=== PATIENT | female | born 1960 | race American Indian/Alaskan Native ===

== ENCOUNTER 2018-05-28 14:32 | Emergency (ER) | payer BC, OTHER ==
--- NOTE | 2018-05-28 15:21 | EDM.PDOC ---
ED HPI GENERAL MEDICAL PROBLEM - General Chief Complaint: Head Injury Stated Complaint: HEAD INJURY Time Seen by Provider: 05/28/18 15:01 Source of Information: Reports: Patient History Limitations: Reports: No Limitations - History of Present Illness INITIAL COMMENTS - FREE TEXT/NARRATIVE: 58-year-old female presents for evaluation treatment of head injury. Injury occurred 2 weeks ago. Patient reports hitting the superior parietal scalp on a garage door when she was straightening up. She denies any loss of consciousness with the injury. As stated this occurred about 2 weeks ago. Since then she's had headaches which are worse with movement. She has had nausea and vomiting. Dizziness that is worse with movement. She is experiencing a "queasy stomach ". she is also having trouble focusing, more irritable than normal, fatigue, photophobia and phonophobia. Reports that she has been vomiting frequently, not quite daily. States she has been taking [id number] Tylenol , Motrin and meclizine for the pain and dizziness. Patient is a type II diabetic. Reports her sugars have been running in the 144- 150 range. Patient is on a baby aspirin daily. Duration: Week(s): (2) Location: Reports: Head - Related Data Allergies Allergy/AdvReac Type Severity Reaction Status Date / Time ampicillin Allergy Rash Verified 05/28/18 15:03 Home Meds: Home Meds Aspirin [Halfprin] 81 mg PO DAILY 02/10/16 [History] Atenolol [Tenormin] 50 mg PO DAILY 02/10/16 [History] Fish Oil/[place]-3 Fatty Acids [Fish Oil 1,000 MG] 1 tab PO BID 02/10/16 [History] Losartan Potassium [Cozaar] 1 tab PO DAILY 02/10/16 [History] amLODIPine [Norvasc] 5 mg PO DAILY 02/10/16 [History] atorvaSTATin [Lipitor] 20 mg PO DAILY 02/10/16 [History] metFORMIN [Glucophage XR] 2,000 mg PO DAILY 02/10/16 [History] Cetirizine [ZyrTEC] 10 mg PO DAILY 05/28/18 [History] Cholecalciferol (Vitamin D3) [Vitamin D3] 2,000 unit PO DAILY 05/28/18 [History] Diclofenac Sodium 1 applic TOP QID 05/28/18 [History] Doxazosin [Cardura] 1 mg PO BEDTIME 05/28/18 [History] Estrogens, Conjugated [Premarin Vaginal Crm] 1 applic VAG ASDIRECTED 05/28/18 [ History] Fluticasone Propionate 1 spray NASBOTH DAILY 05/28/18 [History] Insulin Aspart [Novolog Flexpen] 20 unit SQ TIDMEALS 05/28/18 [History] Insulin Detemir [Levemir] 110 unit SQ DAILY 05/28/18 [History] Levothyroxine 150 mcg PO DAILY 05/28/18 [History] Multivits-Min/Iron/FA/Lutein [Centrum Silver Women Tablet] 1 tab PO DAILY [History] Ondansetron [Zofran ODT] 4 mg PO Q6H PRN #20 tab.dis 05/28/18 [Rx] SUMAtriptan [Imitrex] 25 mg PO ASDIRECTED PRN #20 tab 05/28/18 [Rx] SitaGLIPtin [Januvia] 100 mg PO DAILY 05/28/18 [History] Past Medical History HEENT History: Reports: Impaired Vision Cardiovascular History: Reports: Hypertension Other Cardiovascular History: Heart palpatations Gastrointestinal History: Reports: GERD Other Genitourinary History: pelvic mesh placed in 15yrs ago for incontinence [employer]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 Musculoskeletal History: Reports: Other (See Below) Other Musculoskeletal History: L torn rotator cuff Psychiatric History: Reports: Depression Endocrine/Metabolic History: Reports: Diabetes, Type II - Infectious Disease History Infectious Disease History: Reports: Chicken Pox, Influenza, Measles, Mumps, Pertussis (Whooping Cough) - Past Surgical History GI Surgical History: Reports: Appendectomy Female Surgical History: Reports: Tubal Ligation Dermatological Surgical History: Reports: None Social & Family History - Family History Cardiac: Reports: Heart Failure, [place], SOB on Exertion Other Cardiac Family History: mother and brother Respiratory: Reports: Other (See Below) Other Respiratory Family Hisory: mother pneumonia, brother from breathing problems : Reports: Renal Disease/Insufficiency, Other (See Below) Other Family History: Brother was on dialysis OBGYN: Reports: , Other (See Below) Other OBGYN Family History: hysterectomy- was hemmoraging Psychiatric: Reports: Depression, Suicide Attempt Other Psychiatric Family History: mom attempted suicide at least 3 times Endocrine/Metabolic: Reports: Diabetes, type II Other Endocrine/Metabolic Family History: mom and dad DM, and both brother - Tobacco Use Smoking Status *Q: Never Smoker - Caffeine Use Caffeine Use: Reports: None - Recreational Drug Use Recreational Drug Use: No - Living Situation & Occupation Living situation: Reports: ED ROS GENERAL - Review of Systems Review Of Systems: See Below Constitutional: Reports: Fatigue HEENT: Reports: Other (Reports photophobia and phonophobia) GI/Abdominal: Reports: Nausea, Vomiting Musculoskeletal: Reports: Neck Pain (Reports neck stiffness) Neurological: Reports: Dizziness, Headache. Denies: Numbness, Syncope, Tingling , Weakness Psychiatric: Reports: Other (Irritability) ED EXAM, HEAD INJURY - Physical Exam Exam: See Below Exam Limited By: No Limitations General Appearance: Alert, WD/WN, No Apparent Distress Head: Scalp Hematoma (Approximately one half of a golf ball sized area to the superior parietal scalp). No: Atraumatic, Normocephalic, Scalp Ecchymosis, Active Bleeding, Manzanares's Sign, Raccoon Eyes Nexus Criteria: No: Posterior, Midline Cervical Tenderness, Evidence of Intoxication, Altered Level of Consciousness, Focal Neurological Deficit, Painful Distraction Injuries Eyes: Bilateral Eye: EOMI, Normal Inspection, Nystagmus (Present with horizontal gaze), PERRL Ears: Normal External Exam, Normal Canal, Hearing Grossly Normal, Normal TMs. No: TM Blood Nose: Normal Inspection Throat/Mouth: Normal Inspection, Normal Lips, Normal Oropharynx, Normal Voice, No Airway Compromise Neck: Non-Tender, Full Range of Motion, Normal Alignment, Normal Inspection Respiratory: No Respiratory Distress, Lungs Clear, Normal Breath Sounds Cardiovascular: Normal Peripheral Pulses, Regular Rate, Rhythm, No Murmur Neurologic: Alert, Normal Mood/Affect, Other (Normal heel to bey testing, normal finger to nose testing; tiller man strength, dorsiflexion and plantar flexion 5 out of 5 bilaterally) Skin: Normal Color, Warm/Dry - Aramis Coma Score Best Eye Response ([place]): (4) Open Spontaneously Best Verbal Response ([place]): (5) Oriented Best Motor Response ([place]): (6) Obeys Commands Course - Vital Signs Last Recorded V/S: Last Vital Signs Temp 97.5 F 05/28/18 14:56 Pulse 62 05/28/18 17:05 Resp 16 05/28/18 17:05 BP 119/70 05/28/18 17:05 Pulse Ox 97 05/28/18 17:05 - Orders/Labs/Meds Orders: Active Orders 24 hr Category Date Time Status Head wo Cont [CT] Stat Exams 05/28/18 15:18 Taken - Radiology Interpretation Free Text/Narrative:: CT of the head without contrast impression per [facility]: no acute intracranial process. No sign of 2 week old injury - Re-Assessments/Exams Free Text/Narrative Re-Assessment/Exam: 05/28/18 16:31 I reviewed the imaging with the patient. She does appear to have a postconcussive headache. Recommend symptomatic care. Follow-up in the clinic in 2 weeks for recheck of her symptoms. Discharge instructions as documented. Departure - Departure Time of Disposition: 16:40 Disposition: Home, Self-Care 01 Condition: Fair Clinical Impression: Post concussion syndrome, Headache - Discharge Information *PRESCRIPTION DRUG MONITORING PROGRAM REVIEWED*: No *COPY OF PRESCRIPTION DRUG MONITORING REPORT IN PATIENT MAREN: No Prescriptions: Ondansetron [Zofran ODT] 4 mg PO Q6H PRN #20 tab.dis PRN Reason: Nausea SUMAtriptan [Imitrex] 25 mg PO ASDIRECTED PRN #20 tab PRN Reason: Headache Instructions: General Headache Without Cause, Post-Concussion Syndrome, Easy-to -Read Referrals: PCP,None [Primary Care Provider] - Forms: ED Department Discharge Additional Instructions: make sure you are drinking plenty of fluids. Rest. [id number] Tylenol or motrin as needed for pain. For headaches not relieved by Tylenol or Motrin, may take Imitrex. Take 1 tablet at onset of headache, repeat 2 hours later if headache persists. Zofran 1 tab sublingual every 6-8 hours as needed for nausea. May continue take the meclizine as prescribed for dizziness. Follow-up with your primary care provider within 2 weeks for recheck of your symptoms. Please return to the ER if your symptoms change or worsen. - My Orders Last 24 Hours: My Active Orders 05/28/18 15:18 Head wo Cont [CT] Stat - Assessment/Plan Last 24 Hours: My Active Orders 05/28/18 15:18 Head wo Cont [CT] Stat
[2018-05-28 17:11] VITALS: BP 119/70
--- NOTE | 2018-05-31 08:47 | CT ---
Head CT Technique: Multiple axial sections through the brain were obtained. Intravenous contrast was not utilized. Comparison: Prior MRI brain of 02/11/[address] exam of 02/10/16. Findings: Ventricles along with basal cisterns and sulci over the convexities are within normal limits for the patient's age. No abnormal parenchymal densities are seen. No evidence of intracranial hemorrhage. No midline shift or mass effect is seen. Bone window settings were reviewed which show no acute calvarial abnormality. Visualized sinuses are clear. Impression: 1. Nothing acute is seen on noncontrast head CT study. Diagnostic code #1 Agree with preliminary report issued by [facility] ([facility] preliminary report dictated on 05/28/18, 5:19 PM Central Time)
== END 2018-05-28 17:05 | disposition home or self-care (01) ==
LOC: JD.ED 14:32
DX: G44.309 Post-traumatic headache, unspecified, not intractable (principal); F07.81 Postconcussional syndrome; I10 Essential (primary) hypertension; E11.9 Type 2 diabetes mellitus without complications; Z88.1 Allergy status to other antibiotic agents; Z79.82 Long term (current) use of aspirin; Z79.4 Long term (current) use of insulin; Z79.899 Other long term (current) drug therapy
CPT/HCPCS: 70450; 70450-26; 99284; 99284-25

== ENCOUNTER 2018-10-01 13:36 | Emergency (ER) | payer BC, OTHER ==
[2018-10-01] MEDS ORDERED: Sodium Chloride 0.9% 10 ML Syringe FLUSH PRN (14:00)
--- NOTE | 2018-10-01 14:04 | EDM.PDOC ---
ED HPI GENERAL MEDICAL PROBLEM - General Chief Complaint: Chest Pain Stated Complaint: R SHOULDER AND ARM PAIN Time Seen by Provider: 10/01/18 13:58 Source of Information: Reports: Patient History Limitations: Reports: No Limitations - History of Present Illness INITIAL COMMENTS - FREE TEXT/NARRATIVE: 58-year-old female presents to the ED with pain in her right shoulder over the last couple of days with movement of the shoulder in certain directions. No pain in her neck or referred pain from the neck to the shoulder. Certain movements such as putting on her coat cause increased pain primarily in the anterior aspect of her chest but also posteriorly. No previous fractures or injuries to the shoulder. She has left rotator cuff disease on the left shoulder. She does have a productive sounding cough at times. Has not been coughing real hard. Pain in her right upper anterior chest started about an hour ago. This is what precipitated the ED visit. No fever no chills. Is a nonsmoker. History of coronary disease. Triage nurse did an ECG and it is sinus rhythm at 60/m. There is a near Q-wave in 3 and Q-wave in lead aVF suggesting possibility of an old inferior wall myocardial infarction otherwise ECG is essentially normal. No evidence of acute ischemia. Onset: Gradual (Right shoulder pain for the last 2-3 days.), Other (Right anterior chest pain for one hour) Onset Date: 10/01/18 Onset Time: 12:30 (Right anterior chest pain upper) Duration: Minutes: Location: Reports: Chest (Right upper anterior chest pain radiates through to her back), Upper Extremity, Right (Right shoulder pain with certain movements.) Quality: Reports: Ache, Other Severity: Moderate (Occasionally sharp and stabbing) Improves with: Reports: Rest Worsens with: Reports: Movement (Movement of the right arm and shoulder causes increased pain) Context: Reports: Other (Gradual occurrence over the last 3 days). Denies: Activity, Exercise, Lifting, Sick Contact, Trauma Associated Symptoms: Reports: Other (She does have a mild cough and a bit of a sore throat.) Treatments ADMISSION SPECIALIST: Reports: Other (see below) (None.) Right Chest Pain Score (Numeric/FACES): 8 - Related Data Allergies Allergy/AdvReac Type Severity Reaction Status Date / Time ampicillin Allergy Rash Verified 10/01/18 13:48 Home Meds: Home Meds Aspirin [Halfprin] 81 mg PO DAILY 02/10/16 [History] Atenolol [Tenormin] 50 mg PO DAILY 02/10/16 [History] Fish Oil/[place]-3 Fatty Acids [Fish Oil 1,000 MG] 1 tab PO BID 02/10/16 [History] Losartan Potassium [Cozaar] 1 tab PO DAILY 02/10/16 [History] amLODIPine [Norvasc] 5 mg PO DAILY 02/10/16 [History] atorvaSTATin [Lipitor] 20 mg PO DAILY 02/10/16 [History] metFORMIN [Glucophage XR] 2,000 mg PO DAILY 02/10/16 [History] Cetirizine [ZyrTEC] 10 mg PO BEDTIME 05/28/18 [History] Cholecalciferol (Vitamin D3) [Vitamin D3] 2,000 unit PO DAILY 05/28/18 [History] Doxazosin [Cardura] 1 mg PO DAILY 05/28/18 [History] Estrogens, Conjugated [Premarin Vaginal Crm] 1 applic VAG ASDIRECTED 05/28/18 [ History] Fluticasone Propionate 1 spray NASBOTH DAILY 05/28/18 [History] Insulin Aspart [Novolog Flexpen] 20 unit SQ TIDMEALS 05/28/18 [History] Insulin Detemir [Levemir] 110 unit SQ DAILY 05/28/18 [History] Levothyroxine 150 mcg PO DAILY 05/28/18 [History] Multivits-Min/Iron/FA/Lutein [Centrum Silver Women Tablet] 1 tab PO DAILY [History] Ondansetron [Zofran ODT] 4 mg PO Q6H PRN #20 tab.dis 05/28/18 [Rx] SitaGLIPtin [Januvia] 100 mg PO DAILY 05/28/18 [History] Diclofenac Sodium [Voltaren] 75 mg PO BIDMEALS #14 tab.cr 10/01/18 [Rx] Past Medical History HEENT History: Reports: Impaired Vision Cardiovascular History: Reports: Hypertension Other Cardiovascular History: Heart palpatations Gastrointestinal History: Reports: GERD Other Genitourinary History: pelvic mesh placed in 15yrs ago for incontinence 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 CONS[employer]ANT [employer] History: tubes tided Musculoskeletal History: Reports: Other (See Below) Other Musculoskeletal History: L torn rotator cuff Psychiatric History: Reports: Depression Endocrine/Metabolic History: Reports: Diabetes, Type II (Controlled with metformin and insulin.) - Infectious Disease History Infectious Disease History: Reports: Chicken Pox, Influenza, Measles, Mumps, Pertussis (Whooping Cough) - Past Surgical History GI Surgical History: Reports: Appendectomy Female Surgical History: Reports: Tubal Ligation Dermatological Surgical History: Reports: None Social & Family History - Family History Cardiac: Reports: Heart Failure, [place], SOB on Exertion Other Cardiac Family History: mother and brother Respiratory: Reports: Other (See Below) Other Respiratory Family Hisory: mother pneumonia, brother from breathing problems : Reports: Renal Disease/Insufficiency, Other (See Below) Other Family History: Brother was on dialysis OBGYN: Reports: , Other (See Below) Other OBGYN Family History: hysterectomy- was hemmoraging Psychiatric: Reports: Depression, Suicide Attempt Other Psychiatric Family History: mom attempted suicide at least 3 times Endocrine/Metabolic: Reports: Diabetes, type II Other Endocrine/Metabolic Family History: mom and dad DM, and both brother - Caffeine Use Caffeine Use: Reports: None - Living Situation & Occupation Living situation: Reports: ED ROS GENERAL - Review of Systems Review Of Systems: See Below Constitutional: Denies: Fever, Chills, Malaise, Weakness, Fatigue, Weight Loss HEENT: Reports: Glasses Respiratory: Reports: Cough, Sputum. Denies: Shortness of Breath, Wheezing, Hemoptysis (Occasional but has looked at the color.) Cardiovascular: Reports: Chest Pain, Blood Pressure Problem (An upper anterior chest pain started about an hour ago.). Denies: Claudication, Dyspnea on Exertion, Edema, Lightheadedness, Orthopnea ( Hypertension controlled with medication) Endocrine: Reports: Fatigue, High Glucose (Is a type II diabetic.) GI/Abdominal: Reports: No Symptoms : Reports: Frequency Musculoskeletal: Reports: Shoulder Pain Skin: Reports: No Symptoms (Right shoulder pain see history of present illness) Neurological: Reports: No Symptoms Psychiatric: Reports: No Symptoms Hematologic/Lymphatic: Reports: No Symptoms ED EXAM, GENERAL - Physical Exam Exam: See Below Exam Limited By: No Limitations General Appearance: Alert, WD/WN, No Apparent Distress, Other (Vital signs are stable.) Eye Exam: Bilateral Eye: Normal Inspection Throat/Mouth: Normal Inspection, Normal Lips, Normal Oropharynx Head: Atraumatic, Normocephalic Neck: Normal Inspection, Supple, Non-Tender, Full Range of Motion. No: Lymphadenopathy (L), Lymphadenopathy (R), Thyromegaly Respiratory/Chest: No Respiratory Distress, Lungs Clear, Normal Breath Sounds, No Accessory Muscle Use, Chest Non-Tender, Other (A she has marked chest wall tenderness midclavicular line on the right side ribs 234 and 5 were exquisitely tender to touch. On the left side she is mildly tender ribs 3 and 4 in the midclavicular line. She is also very tender to palpation over the coracoid process of the scapula.) Cardiovascular: Normal Peripheral Pulses, Regular Rate, Rhythm, No Edema, No Gallop, No Murmur Peripheral Pulses: 2+: Posterior Tibial (L), Posterior Tibial (R), Dorsalis Pedis (L), Dorsalis Pedis (R) GI/Abdominal: Normal Bowel Sounds, Soft, Non-Tender, No Organomegaly, No Abnormal Bruit, No Mass, Pelvis Stable, Other (Mildly obese.) Back Exam: Normal Inspection, Full Range of Motion, Muscle Spasm (She has not well localized muscle spasm over the right T8 and 9 rib heads. Nothing on the left side), Other. No: Vertebral Tenderness Extremities: Normal Inspection, Normal Range of Motion, Non-Tender, No Pedal Edema, Other ( Some tenderness at the insertion site of the deltoid tendon.) Neurological: Alert, Oriented, CN II-XII Intact, Normal Cognition, No Motor/ Sensory Deficits, Confused Psychiatric: Normal Mood Skin Exam: Warm, Dry, Intact, Normal Color, No Rash EKG INTERPRETATION EKG Date: 10/01/18 Time: 13:46 Rhythm: NSR Rate (Beats/Min): 60 [place]: LAD-Left [place] Deviation (Mild left axis deviation -15) P-Wave: Present QRS: Other (Near Q-wave in lead 3 and Q-wave in lead aVF. Consider old inferior wall myocardial infarction) ST-T: Normal QT: Normal EKG Interpretation Comments: Abnormal ECG Course - Vital Signs Last Recorded V/S: Last Vital Signs Temp 36.6 C 10/01/18 13:46 Pulse 60 10/01/18 13:46 Resp 18 10/01/18 13:46 BP 144/70 H 10/01/18 13:46 Pulse Ox 95 10/01/18 13:46 - Orders/Labs/Meds Orders: Active Orders 24 hr Category Date Time Status EKG Documentation Completion [RC] STAT Care 10/01/18 14:00 Active Peripheral IV Care [RC] . DIRECTED Care 10/01/18 14:00 Active Chest 1V Frontal [CR] Stat Exams 10/01/18 13:59 Taken Shoulder Comp Rt [CR] Stat Exams 10/01/18 14:00 Taken Ketorolac [Toradol] Med 10/01/18 14:15 Active 30 mg IVPUSH ONETIME Sodium Chloride 0.9% [Saline Flush] Med 10/01/18 14:00 Active 10 ml FLUSH ASDIRECTED PRN Peripheral IV Insertion Adult [OM.PC] Stat Oth 10/01/18 14:00 Ordered Medication Orders Ketorolac Tromethamine (Toradol) 30 mg IVPUSH ONETIME GEOFFREY Last Admin: 10/01/18 14:06 Dose: 30 mg Sodium Chloride (Saline Flush) 10 ml FLUSH ASDIRECTED PRN PRN Reason: Keep Vein Open Last Admin: 10/01/18 14:08 Dose: 10 ml Labs: Laboratory Tests 10/01/18 10/01/18 10/01/18 Range/Units 14:00 14:00 14:00 WBC 6.69 (3.98-10.04) K/mm3 RBC 4.62 (3.98-5.22) M/mm3 Hgb 13.7 (11.2-15.7) gm/L Hct 41.3 (34.1-44.9) % MCV 89.4 (79.4-94.8) fl MCH 29.7 (25.6-32.2) pg MCHC 33.2 (32.2-35.5) g/dl RDW Std Deviation 42.3 (36.4-46.3) fL Plt Count 193 (182-369) K/mm3 MPV 11.7 (9.4-12.3) fl Neutrophils % (Manual) 62 H (40-60) % Band Neutrophils % 0 (0-10) % Lymphocytes % (Manual) 30 (20-40) % Atypical Lymphs % 0 % Monocytes % (Manual) 6 (2-10) % Eosinophils % (Manual) 2 (0.7-5.8) % Basophils % (Manual) 0 L (0.1-1.2) Platelet Estimate Adequate RBC Morph Comment Normal D-Dimer, Quantitative 0.48 (0.19-0.50) mg/L Sodium 142 (136-145) mEq/L Potassium 4.1 (3.5-5.1) mEq/L Chloride 107 (98-107) mEq/L Carbon Dioxide 24 (21-32) mEq/L Anion Gap 15.1 H (5-15) BUN 17 (7-18) mg/dL Creatinine 1.2 H (0.55-1.02) mg/dL Est Cr Clr Drug Dosing 42.79 mL/min Estimated GFR (MDRD) 46 (>60) mL/min BUN/Creatinine Ratio 14.2 (14-18) Glucose 208 H (74-106) mg/dL Calcium 10.3 H (8.5-10.1) mg/dL Total Bilirubin 0.5 (0.2-1.0) mg/dL AST 41 H (15-37) U/L ALT 59 (14-59) U/L Alkaline Phosphatase 116 (46-116) U/L Troponin I < 0.017 (0.00-0.056) ng/mL C-Reactive Protein 0.9 (<1.0) mg/dL Total Protein 7.4 (6.4-8.2) g/dl Albumin 3.5 (3.4-5.0) g/dl Globulin 3.9 gm/dL Albumin/Globulin Ratio 0.9 L (1-2) Meds: Medications Generic Name Dose Route Start Last Admin Trade Name Freq PRN Reason Stop Dose Admin Ketorolac Tromethamine 30 mg 10/01/18 14:15 10/01/18 14:06 Toradol IVPUSH 30 mg ONETIME GEOFFREY Administration Sodium Chloride 10 ml 10/01/18 14:00 10/01/18 14:08 Saline Flush FLUSH 10 ml ASDIRECTED PRN Administration Keep Vein Open - Radiology Interpretation Free Text/Narrative:: 58-year-old female presents to the ED with right shoulder pain and right anterior upper chest pain. Chest pain started about an hour ago but the shoulder pain is been present for 2-3 days. It's worsened by certain movements such as getting her coat on etc. Examination confirms mild deltoid insertion tendinitis and tendinitis at the coracoid process insertion. Also ribs are very tender in the midclavicular line on the right side ribs 234 and 5. The lungs are clear to stage percussion. She states does have a mild cough. O2 sats only 95% on room air. She is a nonsmoker. Plan 1 view chest x-ray 3 view of the shoulder to be done. Routine labs including CBC , CMP and CRP and d-dimer to be done. Saline lock is started by triage nurse. I will give her Toradol 30 mg IV. - Re-Assessments/Exams Free Text/Narrative Re-Assessment/Exam: 10/01/18 14:37 chest x-ray one view is within normal limits. Cardiac silhouette is normal visualized portion of the lungs are clear. Visualized ribs show no abnormalities. Two-view x-ray of the right shoulder also reveals only mild arthritic changes at the acromion process. Bony structures are otherwise normal. 10/01/18 14:39 Labs reveal a normal white count at 6.69 with 62% neutrophils and no band cells hemoglobin is 13.7 with hematocrit of 41.3. Platelet count is normal 193,000. D-dimer is normal at 0.48. Sodium 142 with a potassium of 4.1. Toward 107 with a bicarbonate 24. And a gap is 15.1. BUNs 17 with a creatinine of 1.2. Glucose is elevated at 28 but the patient is a diabetic. Calcium slightly elevated at 10.3. Liver function is normal cardiac markers are also normal with troponin I of less than 0.017. C- reactive protein is 0.9. 10/01/18 14:[address] the patient on Voltaren 75 mg twice daily for 7 days to reduce pain and inflammation. Her kidney function is normal. Advise seeking chiropractic manipulation of the rib head that's out at thoracic 89 in her right upper back. Departure - Departure Time of Disposition: 14:45 Disposition: Home, Self-Care 01 Condition: Fair Clinical Impression: Tendonitis of shoulder, right, Anterior chest wall pain, Non-cardiac chest pain - Discharge Information *PRESCRIPTION DRUG MONITORING PROGRAM REVIEWED*: No *COPY OF PRESCRIPTION DRUG MONITORING REPORT IN PATIENT MAREN: No Prescriptions: Diclofenac Sodium [Voltaren] 75 mg PO BIDMEALS #14 tab.cr Referrals: Bosko,Aretha, [employer]ER [Primary Care Provider] - Forms: ED Department Discharge Additional Instructions: Evaluation the emergency room today in regards to pain in her right shoulder for the last 2-3 days but right upper anterior chest pain developed over the last few hours. Examination reveals tendinitis in the right shoulder some of the deltoid muscle insertion and the outer shoulder but pain primarily over the coracoid process which is where tendon is attached her shoulder blade and you' re little right upper anterior chest. Also ribs 2345 were very tender to touch on the right side and mildly on the left side. Chest x-ray is normal x-ray of the right shoulder shows minimal degenerative arthritic changes of the undersurface of the acromion process but no other active arthritis in the true shoulder joint. Test done revealed no evidence of blood clot in the lawn or heart related illness. The ribs were also well visualized on the chest x-ray in the do not reveal any abnormalities. Diagnosis is tendinitis of tendons that help move her shoulder and attached to your chest wall. Treatment is Voltaren 75 mg twice daily with breakfast and supper for the next 7 days to reduce pain and inflammation. Use Tylenol as well 650 mg every 6 hours if needed for pain relief. Regards the rib head that's out in your right upper back suggest follow- up with chiropractor to have this adjusted. Follow-up with personal care physician if problems persist. - My Orders Last 24 Hours: My Active Orders 10/01/18 13:59 Chest 1V Frontal [CR] Stat 10/01/18 14:00 EKG Documentation Completion [RC] STAT Peripheral IV Care [RC] . DIRECTED Shoulder Comp Rt [CR] Stat Sodium Chloride 0.9% [Saline Flush] 10 ml FLUSH ASDIRECTED PRN Peripheral IV Insertion Adult [OM.PC] Stat 10/01/18 14:15 Ketorolac [Toradol] 30 mg IVPUSH ONETIME - Assessment/Plan Last 24 Hours: My Active Orders 10/01/18 13:59 Chest 1V Frontal [CR] Stat 10/01/18 14:00 EKG Documentation Completion [RC] STAT Peripheral IV Care [RC] . DIRECTED Shoulder Comp Rt [CR] Stat Sodium Chloride 0.9% [Saline Flush] 10 ml FLUSH ASDIRECTED PRN Peripheral IV Insertion Adult [OM.PC] Stat 10/01/18 14:15 Ketorolac [Toradol] 30 mg IVPUSH ONETIME
[2018-10-01] MEDS ORDERED: Ketorolac 30 MG/ML SDV IVPUSH SCH (14:15)
[2018-10-01 14:56] VITALS: BP 122/71
--- NOTE | 2018-10-01 16:16 | CR ---
Chest: Frontal view of the chest was obtained. Comparison: Prior chest x-ray of 02/26/10. Heart size is normal. Slight tortuosity of the thoracic aorta is seen. Lungs show no acute parenchymal change. Bony structures are grossly intact. Impression: 1. Nothing acute is appreciated on frontal chest x-ray. Diagnostic code #1
--- NOTE | 2018-10-01 16:18 | CR ---
Right shoulder: Three views of the right shoulder were obtained. Comparison: No prior right shoulder study. Small inferior spurring is noted off the acromion process at the acromioclavicular joint. Glenohumeral joint appears within normal limits. No soft tissue calcifications are seen. No acute fracture or other abnormality is seen. Impression: 1. Incidental finding as noted above. Right shoulder study is otherwise unremarkable. Diagnostic code #2
== END 2018-10-01 14:52 | disposition home or self-care (01) ==
LOC: JD.ED 13:36
DX: M75.91 Shoulder lesion, unspecified, right shoulder (principal); R07.89 Other chest pain; I10 Essential (primary) hypertension; K21.9 Gastro-esophageal reflux disease without esophagitis; F32.9 Major depressive disorder, single episode, unspecified; E11.9 Type 2 diabetes mellitus without complications; Z88.1 Allergy status to other antibiotic agents; Z79.899 Other long term (current) drug therapy; Z79.4 Long term (current) use of insulin
CPT/HCPCS: 36415; 71045; 73030; 80053; 84484; 85007; 85027; 85379; 86140; 93005; 96374; 99284; J1885; 93010; 99285

== ENCOUNTER 2019-02-18 10:15 | Emergency (ER) | payer BC, OTHER ==
[2019-02-18 10:25] VITALS: BP 140/72
--- NOTE | 2019-02-18 10:46 | EDM.PDOC ---
ED HPI GENERAL MEDICAL PROBLEM - General Chief Complaint: Cardiovascular Problem Stated Complaint: [facility] Time Seen by Provider: 02/18/19 10:20 Source of Information: Reports: Patient, EMS Notes Reviewed, RN Notes Reviewed, Other (S clinic notes) History Limitations: Reports: No Limitations - History of Present Illness INITIAL COMMENTS - FREE TEXT/NARRATIVE: Patient is a 59-year-old female who presents to the ED today via [facility] for the evaluation of chest pain. The patient states that she woke up this morning and felt as if her heart was racing, and that she couldn't relax. She states she got up to try to relax but could not so she went to the bathroom and got ready for work. The patient states she went to work and still wasn't feeling all that great, so she went to the clinic and she thought maybe her blood pressure could be a little bit high as well. The patient notes that her blood sugar at that time was also 257. Her blood pressure at time of triage is 140/72. The patient states that she developed left sided arm pain, that radiated into her left chest as they were checking her blood pressure at the clinic. The patient notes that she has had pain like this similar in the past and was told she had a rotator cuff tear on her left shoulder. She denies any trauma or reinjury to her left shoulder. The patient notes the pain to be sort of crampy in nature. She was given 2 nitroglycerin tablets and 4 baby aspirins at the clinic, this helped to resolve her pain from a 7/10 to a 2/10. The patient states that she has recently been started on Trulicity for her diabetes as it is been somewhat uncontrolled. She states she has taken 4 doses of this, these are weekly injections. She is develop some diarrhea from this medication, but does not have any other GI concerns at this time. She denies any shortness of breath, blurred vision, fevers or chills. She notes the left- sided chest pain and left-sided arm pain, and a headache that has since resolved. The patient's primary care provider does work at [facility] [employer] in [place]. Treatments [employer]: Reports: EKG Left Chest Pain Score (Numeric/FACES): 2 - Related Data Allergies Allergy/AdvReac Type Severity Reaction Status Date / Time ampicillin Allergy Rash Verified 02/18/19 10:21 Home Meds: Home Meds Aspirin [Halfprin] 81 mg PO DAILY 02/10/16 [History] Atenolol [Tenormin] 50 mg PO DAILY 02/10/16 [History] Fish Oil/Schulter-3 Fatty Acids [Fish Oil 1,000 MG] 1 tab PO BID 02/10/16 [History] Losartan Potassium [Cozaar] 1 tab PO DAILY 02/10/16 [History] amLODIPine [Norvasc] 5 mg PO DAILY 02/10/16 [History] atorvaSTATin [Lipitor] 20 mg PO DAILY 02/10/16 [History] metFORMIN [Glucophage XR] 2,000 mg PO DAILY 02/10/16 [History] Cholecalciferol (Vitamin D3) [Vitamin D3] 2,000 unit PO DAILY 05/28/18 [History] Doxazosin [Cardura] 1 mg PO DAILY 05/28/18 [History] Insulin Aspart [Novolog Flexpen] 20 unit SQ TIDMEALS 05/28/18 [History] Insulin Detemir [Levemir] 110 unit SQ DAILY 05/28/18 [History] Levothyroxine 150 mcg PO DAILY 05/28/18 [History] Multivits-Min/Iron/FA/Lutein [Centrum Silver Women Tablet] 1 tab PO DAILY [History] SitaGLIPtin [Januvia] 100 mg PO DAILY 05/28/18 [History] Diclofenac Sodium [Voltaren] 75 mg PO BIDMEALS #14 tab.cr 10/01/18 [Rx] Acetaminophen 1,000 mg PO Q6HR 02/18/19 [History] Cetirizine [ZyrTEC] 10 mg PO DAILY 02/18/19 [History] Dulaglutide [Trulicity] 0.75 mg INJECT WEEKLY 02/18/19 [History] Estrogens, Conjugated [Premarin Vaginal Crm] 1 applic TOP BID 02/18/19 [History] Fluticasone Propionate, Micro [Fluticasone Propionate Micro] 1 sprays JUAN DAILY PRN 02/18/19 [History] Ibuprofen 600 mg PO Q6HR 02/18/19 [History] guaiFENesin [Guaifenesin] 200 mg PO Q4HR 02/18/19 [History] Past Medical History HEENT History: Reports: Impaired Vision Other HEENT History: L ear deaf Cardiovascular History: Reports: Hypertension Other Cardiovascular History: Heart palpatations. 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: Reports: Other SECURITY ROVER History: tubes tided Musculoskeletal History: Reports: Other (See Below) Other Musculoskeletal History: L torn rotator cuff Psychiatric History: Reports: Depression Endocrine/Metabolic History: Reports: Diabetes, Type II - Infectious Disease History Infectious Disease History: Reports: Chicken Pox, Influenza, Measles, Mumps, Pertussis (Whooping Cough) - Past Surgical History HEENT Surgical History: Reports: LASIK GI Surgical History: Reports: Appendectomy Female Surgical History: Reports: Hysterectomy, Tubal Ligation Dermatological Surgical History: Reports: None Social & Family History - Family History Cardiac: Reports: Heart Failure, [place], SOB on Exertion Other Cardiac Family History: mother and brother Respiratory: Reports: Other (See Below) Other Respiratory Family Hisory: mother pneumonia, brother from breathing problems : Reports: Renal Disease/Insufficiency, Other (See Below) Other Family History: Brother was on dialysis OBGYN: Reports: , Other (See Below) Other OBGYN Family History: hysterectomy- was hemmoraging Psychiatric: Reports: Depression, Suicide Attempt Other Psychiatric Family History: mom attempted suicide at least 3 times Endocrine/Metabolic: Reports: Diabetes, type II Other Endocrine/Metabolic Family History: mom and dad DM, and both brother - Tobacco Use Smoking Status *Q: Former Smoker Used Tobacco, but Quit: Yes Month/Year Tobacco Last Used: 10/1983 - Caffeine Use Caffeine Use: Reports: None - Recreational Drug Use Recreational Drug Use: No - Living Situation & Occupation Living situation: Reports: ED ROS GENERAL - Review of Systems Review Of Systems: See Below Constitutional: Denies: Fever, Chills, Malaise HEENT: Reports: No Symptoms Respiratory: Denies: Shortness of Breath, Wheezing, Cough Cardiovascular: Reports: Chest Pain (left sided). Denies: Dyspnea on Exertion, Edema, Lightheadedness, Orthopnea, Syncope Endocrine: Reports: No Symptoms GI/Abdominal: Reports: Diarrhea. Denies: Constipation, Nausea, Vomiting : Reports: No Symptoms Musculoskeletal: Reports: Shoulder Pain (Left shoulder), Arm Pain (Left upper arm) Skin: Reports: No Symptoms Neurological: Reports: No Symptoms Psychiatric: Reports: No Symptoms Hematologic/Lymphatic: Reports: No Symptoms Immunologic: Reports: No Symptoms ED EXAM, GENERAL - Physical Exam Exam: See Below Exam Limited By: No Limitations General Appearance: Alert, WD/WN, No Apparent Distress Eye Exam: Bilateral Eye: Normal Inspection Ears: Normal External Exam Nose: Normal Inspection Throat/Mouth: Normal Inspection, Normal Lips, Normal Teeth, Normal Gums, Normal Oropharynx, Normal Voice, No Airway Compromise Head: Atraumatic, Normocephalic Neck: Normal Inspection, Supple, Non-Tender, Full Range of Motion Respiratory/Chest: No Respiratory Distress, Lungs Clear, Normal Breath Sounds, No Accessory Muscle Use, Other (Patient's chest is tender to palpation over the 3-4th rib mid clavicular line) Cardiovascular: Normal Peripheral Pulses, Regular Rate, Rhythm, No Murmur Peripheral Pulses: 3+: Radial (L), Radial (R) GI/Abdominal: Normal Bowel Sounds, Soft, Non-Tender, No Distention, No Mass Extremities: Normal Inspection, Normal Range of Motion, Non-Tender, Normal Capillary Refill Neurological: Alert, Oriented, Normal Cognition, No Motor/Sensory Deficits Psychiatric: Normal Affect, Normal Mood Skin Exam: Warm, Dry, Intact, Normal Color, No Rash EKG INTERPRETATION EKG Date: 02/18/19 Time: 10:22 Rhythm: NSR Rate (Beats/Min): 61 Deridder: Normal P-Wave: Present QRS: Normal ST-T: Normal QT: Normal EKG Interpretation Comments: Reviewed with Dr. Osuna. Course - Vital Signs Last Recorded V/S: Last Vital Signs Temp 98.1 F 02/18/19 10:21 Pulse 63 02/18/19 10:21 Resp 20 02/18/19 10:21 BP 140/72 02/18/19 10:21 Pulse Ox 95 02/18/19 10:21 - Orders/Labs/Meds Orders: Active Orders 24 hr Category Date Time Status EKG Documentation Completion [RC] STAT Care 02/18/19 10:28 Ordered Labs: Laboratory Tests 02/18/19 02/18/19 02/18/19 Range/Units 10:32 10:32 10:32 WBC 8.10 (3.98-10.04) K/mm3 RBC 4.47 (3.98-5.22) M/mm3 Hgb 13.2 (11.2-15.7) gm/L Hct 40.5 (34.1-44.9) % MCV 90.6 (79.4-94.8) fl MCH 29.5 (25.6-32.2) pg MCHC 32.6 (32.2-35.5) g/dl RDW Std Deviation 44.4 (36.4-46.3) fL Plt Count 194 (182-369) K/mm3 MPV 12.2 (9.4-12.3) fl Neutrophils % (Manual) 63 H (40-60) % Band Neutrophils % 0 (0-10) % Lymphocytes % (Manual) 30 (20-40) % Atypical Lymphs % 0 % Monocytes % (Manual) 3 (2-10) % Eosinophils % (Manual) 2 (0.7-5.8) % Basophils % (Manual) 2 H (0.1-1.2) Platelet Estimate Adequate RBC Morph Comment Normal PT 10.3 (9.5-12.1) SECONDS INR 0.94 APTT 27 (24-31) SECONDS Sodium 138 (136-145) mEq/L Potassium 4.5 (3.5-5.1) mEq/L Chloride 104 (98-107) mEq/L Carbon Dioxide 22 (21-32) mEq/L Anion Gap 16.5 H (5-15) BUN 18 (7-18) mg/dL Creatinine 1.1 H (0.55-1.02) mg/dL Est Cr Clr Drug Dosing 46.11 mL/min Estimated GFR (MDRD) 51 (>60) mL/min BUN/Creatinine Ratio 16.4 (14-18) Glucose 289 H (74-106) mg/dL POC Glucose (70-105) mg/dL Calcium 9.4 (8.5-10.1) mg/dL Magnesium 1.4 L (1.8-2.4) mg/dl Total Bilirubin 0.6 (0.2-1.0) mg/dL AST 36 (15-37) U/L ALT 59 (14-59) U/L Alkaline Phosphatase 133 H (46-116) U/L Troponin I < 0.017 (0.00-0.056) ng/mL NT-Pro-B Natriuret Pep (0-125) pg/mL Total Protein 7.1 (6.4-8.2) g/dl Albumin 3.5 (3.4-5.0) g/dl Globulin 3.6 gm/dL Albumin/Globulin Ratio 1.0 (1-2) 02/18/19 02/18/19 Range/Units 10:32 10:32 WBC (3.98-10.04) K/mm3 RBC (3.98-5.22) M/mm3 Hgb (11.2-15.7) gm/L Hct (34.1-44.9) % MCV (79.4-94.8) fl MCH (25.6-32.2) pg MCHC (32.2-35.5) g/dl RDW Std Deviation (36.4-46.3) fL Plt Count (182-369) K/mm3 MPV (9.4-12.3) fl Neutrophils % (Manual) (40-60) % Band Neutrophils % (0-10) % Lymphocytes % (Manual) (20-40) % Atypical Lymphs % % Monocytes % (Manual) (2-10) % Eosinophils % (Manual) (0.7-5.8) % Basophils % (Manual) (0.1-1.2) Platelet Estimate RBC Morph Comment PT (9.5-12.1) SECONDS INR APTT (24-31) SECONDS Sodium (136-145) mEq/L Potassium (3.5-5.1) mEq/L Chloride (98-107) mEq/L Carbon Dioxide (21-32) mEq/L Anion Gap (5-15) BUN (7-18) mg/dL Creatinine (0.55-1.02) mg/dL Est Cr Clr Drug Dosing mL/min Estimated GFR (MDRD) (>60) mL/min BUN/Creatinine Ratio (14-18) Glucose (74-106) mg/dL POC Glucose 283 H (70-105) mg/dL Calcium (8.5-10.1) mg/dL Magnesium (1.8-2.4) mg/dl Total Bilirubin (0.2-1.0) mg/dL AST (15-37) U/L ALT (14-59) U/L Alkaline Phosphatase (46-116) U/L Troponin I (0.00-0.056) ng/mL NT-Pro-B Natriuret Pep 17 (0-125) pg/mL Total Protein (6.4-8.2) g/dl Albumin (3.4-5.0) g/dl Globulin gm/dL Albumin/Globulin Ratio (1-2) - Re-Assessments/Exams Free Text/Narrative Re-Assessment/Exam: 02/18/19 10:48 Patient presents to the ED for the evaluation of left-sided chest pain. I have ordered a cardiac workup to be done to rule out any cardiac etiology. I'm suspicious that this is related to a musculoskeletal problem in nature. Her EKG at time of triage is within normal limits. 02/18/19 11:26 Patient's labs have returned are essentially within normal limits. Her blood sugar is mildly elevated at 258, she states that she does have some blood sugar issues recently, she will deal with this by herself and with her clinic provider. Her pain appears to have been musculoskeletal in nature with some associated anxiety. Will discharge the patient home with general recommendations. Departure - Departure Time of Disposition: 11:32 Disposition: Home, Self-Care 01 Condition: Fair Clinical Impression: Chest pain Qualifiers: Chest pain type: other chest pain Qualified Code(s): R07.89 - Other chest pain ; R07.8 - Other chest pain Instructions: Chest Wall Pain, Dgiz-kg-Mgmt, Nonspecific Chest Pain, Easy-to- Read Forms: ED Department Discharge Additional Instructions: You have been evaluated in the ED for your left sided chest/ arm pain. Your cardiac workup in the ED today, was negative for any cardiac abnormalities at this time. Your symptoms and pain are most likely due to musculoskeletal problem in nature, as your chest was tender with palpation. The treatment for this is NSAID therapy. Please use ice/heat as tolerated to the affected area. You may take Aleve 1-2 tabs Q 12H or ibuprofen 600mg Q6H for pain relief. Please do so until you have a tolerable level of pain with activity. Do not exceed 3200mg ibuprofen in a 24 hour time period. Recommend that you be evaluated by an marketing finance specialist for lingering rotator cuff problems, if you should desire treatment (replacement versus therapy). Dr. Bonilla is our orthopedic surgeon, he can be reached at [phone]. Please call to make an appointment at your next earliest convenience. Please return to ED if your symptoms should change or worsen. - My Orders Last 24 Hours: My Active Orders 02/18/19 10:28 EKG Documentation Completion [RC] STAT - Assessment/Plan Last 24 Hours: My Active Orders 02/18/19 10:28 EKG Documentation Completion [RC] STAT
--- NOTE | 2019-02-18 11:03 | CR ---
Chest: Portable view of the chest was obtained. Comparison: Prior chest x-ray of 10/01/18. Heart size appears within normal limits for portable technique. Tortuous thoracic aorta is seen. Lungs are clear with no acute parenchymal change. Bony structures are grossly intact. Impression: 1. Nothing acute is appreciated on portable chest x-ray. Diagnostic code #1
== END 2019-02-18 12:08 | disposition home or self-care (01) ==
LOC: JD.ED 10:15
DX: R07.89 Other chest pain (principal); I10 Essential (primary) hypertension; E11.9 Type 2 diabetes mellitus without complications; Z90.49 Acquired absence of other specified parts of digestive tract; Z90.710 Acquired absence of both cervix and uterus; Z79.82 Long term (current) use of aspirin; Z79.84 Long term (current) use of oral hypoglycemic drugs; Z79.899 Other long term (current) drug therapy; Z88.1 Allergy status to other antibiotic agents
CPT/HCPCS: 36415; 71045; 71045-26; 80053; 82962; 83735; 83880; 84484; 85007; 85027; 85610; 85730; 93005; 93010; 99285; 99285-25

== ENCOUNTER 2023-05-01 07:45 | Emergency (ER) | payer BC, OTHER ==
[2023-05-01] MEDS ORDERED: Nitroglycerin 0.4 MG Tab.SL SL ONE (08:32)
[2023-05-01] MEDS: Nitroglycerin 0.4 MG Tab.SL SL PRN ×2 (08:43→09:00)
[2023-05-01 08:50] LABS: BASOPHILS ABSOLUTE AUTO 0.01 K/mm3 (0.01-0.08); BASOPHILS PERCENT AUTO 0.2 % (0.1-1.2); EOSINOPHILS PERCENT AUTO 3.3 (0.7-5.8); HEMATOCRIT 41.4 % (34.1-44.9); HEMOGLOBIN 13.4 gm/dl (11.2-15.7); IMMATURE GRAN ABSOLUTE AUTO 0.02 K/mm3 (0.00-0.10); IMMATURE GRAN PERCENT AUTO 0.3 % (<=1.0); LYMPHOCYTES PERCENT AUTO 29.6 % (19.3-51.7); MEAN CORPUSCULAR HEMOGLOBIN 30.5 pg (25.6-32.2); MEAN CORPUSCULAR HGB CONC 32.4 g/dl (32.2-35.5); MEAN CORPUSCULAR VOLUME 94.3 fl (79.4-94.8); MEAN PLATELET VOLUME 11.6 fl (9.4-12.3); MONOCYTES ABSOLUTE AUTO 0.38 K/mm3 (0.24-0.36); MONOCYTES PERCENT AUTO 6.2 % (4.7-12.5); NEUTROPHILS ABSOLUTE AUTO 3.68 K/mm3 (1.56-6.13); NEUTROPHILS PERCENT AUTO 60.4 % (34.0-71.1); PLATELET COUNT,PLT 182 K/mm3 (182-369); RED BLOOD CELL COUNT 4.39 M/mm3 (3.98-5.22); WHITE BLOOD CELL COUNT,WBC 6.09 K/mm3 (3.98-10.04)
[2023-05-01 09:06] LABS: ALANINE AMINOTRANSFERASE,ALT 38 U/L (14-59); ALBUMIN 3.5 g/dl (3.4-5.0); ALKALINE PHOSPHATASE 103 U/L (46-116); ANION GAP 9.6 (5-15); ASPARTATE AMNIOTRANSFERASE,AST 25 U/L (15-37); BILIRUBIN TOTAL 0.5 mg/dL (0.2-1.0); BLOOD UREA NITROGEN,BUN 16 mg/dL (7-18); BUN/CREATININE RATIO 13.3 (14-18); CALCIUM 8.8 mg/dL (8.5-10.1); CARBON DIOXIDE,CO2 29 mEq/L (21-32); CHLORIDE,CL 108 mEq/L (98-107); CREATININE 1.2 mg/dL (0.55-1.02); EST CRCL DRUG DOSING (CG) 40.21 mL/min; ESTIMATED GFR 51 mL/min (>60); GLUCOSE RANDOM 185 mg/dL (70-99); POTASSIUM,K 4.6 mEq/L (3.5-5.1); PROTEIN TOTAL,TP 7.2 g/dl (6.4-8.2); SODIUM,NA 142 mEq/L (136-145)
[2023-05-01 09:07] LABS: TROPONIN I HIGH SENSITIVITY < 4 pg/mL (<=51)
[2023-05-01] MEDS ORDERED: Aluminum Hydroxide/Magnesium Hydroxide/Simethicone Susp 30 ML Cup PO ONE (09:10)
[2023-05-01] MEDS ORDERED: Pantoprazole 40 MG Tab.CR PO ONE (12:05)
[2023-05-01 12:19] VITALS: BP 134/74; PULSE 64
[2023-05-02] MEDS ORDERED: Pantoprazole 40 MG Tab.CR PO ONE (11:11)
== END 2023-05-01 12:00 | disposition home or self-care (01) ==
LOC: JD.ED 07:45
DX: K21.9 Gastro-esophageal reflux disease without esophagitis (principal); I10 Essential (primary) hypertension; E11.9 Type 2 diabetes mellitus without complications; Z88.1 Allergy status to other antibiotic agents; Z79.82 Long term (current) use of aspirin; Z79.4 Long term (current) use of insulin; Z79.899 Other long term (current) drug therapy
CPT/HCPCS: 36415; 71045; 80053; 84484; 85025; 93005; 99285; A9270; 99283

== ENCOUNTER 2024-12-24 05:58 | Emergency (ER) | payer BC, OTHER ==
[2024-12-24 08:32] VITALS: BP 142/76; PULSE 63
== END 2024-12-24 08:05 | disposition home or self-care (01) ==
LOC: JD.ED 05:58
DX: M79.604 Pain in right leg (principal); I10 Essential (primary) hypertension; K21.9 Gastro-esophageal reflux disease without esophagitis; E11.9 Type 2 diabetes mellitus without complications; Z88.8 Allergy status to other drugs, medicaments and biological substances; Z79.82 Long term (current) use of aspirin; Z79.4 Long term (current) use of insulin; Z79.890 Hormone replacement therapy; Z79.899 Other long term (current) drug therapy; Z86.16 Personal history of COVID-19; Z90.49 Acquired absence of other specified parts of digestive tract; Z90.710 Acquired absence of both cervix and uterus
CPT/HCPCS: 73552-26-RT; 73552-RT; 73590-26-RT; 73590-RT; 93971-26-RT; 93971-RT; 99283; 99284

== ENCOUNTER 2025-05-07 21:50 | Emergency (ER) | payer OTHER ==
[2025-05-07] MEDS ORDERED: Sodium Chloride 0.9% 10 ML Syringe FLUSH PRN (22:08)
[2025-05-07 22:23] LABS: BASOPHILS ABSOLUTE AUTO 0.0 K/mm3 (0.0-0.2); BASOPHILS PERCENT AUTO 0.4 % (0.0-1.0); EOSINOPHILS ABSOLUTE AUTO 0.2 K/mm3 (0.0-0.4); EOSINOPHILS PERCENT AUTO 2.8 % (0.0-6.0); IMMATURE GRAN ABSOLUTE AUTO 0.01 K/mm3 (0.00-0.05); IMMATURE GRAN PERCENT AUTO 0.1 % (0.0-0.4); LYMPHOCYTES ABSOLUTE AUTO 2.6 K/mm3 (1.0-4.8); LYMPHOCYTES PERCENT AUTO 35.8 % (24.0-44.0); MEAN PLATELET VOLUME 11.7 fl (9.4-12.3); MONOCYTES ABSOLUTE AUTO 0.4 K/mm3 (0.0-0.8); MONOCYTES PERCENT AUTO 5.2 % (0.0-8.0); NEUTROPHILS ABSOLUTE AUTO 4.0 K/mm3 (1.8-7.7); NEUTROPHILS PERCENT AUTO 55.7 % (41.0-71.0); NRBC ABSOLUTE 0.00 (0.00-0.02); NRBC PERCENT 0.0 % (0.0-0.2); PLATELET COUNT,PLT 217 K/mm3 (150-400); RED BLOOD CELL COUNT 4.18 M/mm3 (4.10-5.30); WHITE BLOOD CELL COUNT,WBC 7.16 K/mm3 (3.9-11.3)
[2025-05-07 22:57] LABS: A/G RATIO 1.0 (1-2); ALANINE AMINOTRANSFERASE,ALT 21.0 U/L (14-59); ASPARTATE AMNIOTRANSFERASE,AST 16.0 U/L (15-37); BILIRUBIN TOTAL 0.4 mg/dL (0.2-1.0); BLOOD UREA NITROGEN,BUN 21.0 mg/dL (7-18); CARBON DIOXIDE,CO2 26.0 mEq/L (21-32); CHLORIDE,CL 107.0 mEq/L (98-107); CREATININE 1.2 mg/dL (0.55-1.02); EST CRCL DRUG DOSING (CG) 39.18 mL/min; ESTIMATED GFR 51.0 mL/min (>60); GLUCOSE RANDOM 120.0 mg/dL (70-99); PHOSPHORUS 3.6 mg/dL (2.6-4.7); POTASSIUM,K 4.4 mEq/L (3.5-5.1); PROTEIN TOTAL,TP 7.1 g/dl (6.4-8.2); SODIUM,NA 143.0 mEq/L (136-145); TROPONIN I HIGH SENSITIVITY 4.0 pg/mL (<=51)
[2025-05-07 23:56] LABS: APPEARANCE,URINE CLEAR (Clear); GLUCOSE,URINE NEGATIVE (Negative); OCCULT BLOOD,URINE NEGATIVE (Negative)
[2025-05-08 02:22] VITALS: BP 154/78; PULSE 75
== END 2025-05-08 02:22 | disposition home or self-care (01) ==
LOC: JD.ED 21:50
DX: R07.89 Other chest pain (principal); R06.00 Dyspnea, unspecified; I10 Essential (primary) hypertension; K21.9 Gastro-esophageal reflux disease without esophagitis; E11.9 Type 2 diabetes mellitus without complications; Z86.16 Personal history of COVID-19; Z90.49 Acquired absence of other specified parts of digestive tract; Z90.710 Acquired absence of both cervix and uterus; Z88.1 Allergy status to other antibiotic agents; Z79.4 Long term (current) use of insulin; Z79.82 Long term (current) use of aspirin; Z79.84 Long term (current) use of oral hypoglycemic drugs; Z79.890 Hormone replacement therapy; Z79.899 Other long term (current) drug therapy
CPT/HCPCS: 36415; 71045; 71045-26; 80053; 81003; 83605; 83690; 83735; 84100; 84484; 85025; 93005; 93010; 99283; 99285; A9270-GY